=== PATIENT | male | born 2000 | race Caucasian/White ===

== ENCOUNTER 2021-11-20 19:01 | Emergency (ER) | payer OTHER ==
[~2021-11-20] VITALS: Ht 167.6 cm; Wt 59.1 kg
[2021-11-20 19:28] VITALS: BP 126/72
== END 2021-11-20 20:30 | disposition left against medical advice (07) ==
LOC: EMS 19:12
DX: S80.852A Superficial foreign body, left lower leg, initial encounter (principal); W45.8XXA Other foreign body or object entering through skin, initial encounter; Y93.89 Activity, other specified; Y92.89 Other specified places as the place of occurrence of the external cause; Y99.8 Other external cause status; Z53.21 Procedure and treatment not carried out due to patient leaving prior to being seen by health care provider